=== PATIENT | male | born 1985 | race Caucasian/White ===

== ENCOUNTER 2021-04-02 17:21 | Emergency (ER) | payer OTHER ==
[2021-04-02 19:39] VITALS: O2SAT 100
[2021-04-02] MEDS ORDERED: XYLOCAINE 1% HCL 20 ML MDV ONE (20:14)
[2021-04-02] MEDS ORDERED: XYLOCAINE 1% HCL 20 ML MDV IJ ONE (20:30)
[2021-04-02] MEDS ORDERED: BACIGUENT PACKET TP ONE (20:30)
[2021-04-02 20:40] VITALS: BP 128/73; PULSE 81
--- NOTE | 2021-04-03 09:12 | XRAY ---
Indication: Laceration. Comparison: None 3 view left 2nd finger demonstrates distal soft tissue swelling/laceration. No other bony, articular, or soft tissue abnormalities.
== END 2021-04-02 20:44 | disposition home or self-care (01) ==
LOC: ED 17:21
DX: S61.211A Laceration without foreign body of left index finger without damage to nail, initial encounter (principal); W27.8XXA Contact with other nonpowered hand tool, initial encounter; Y93.89 Activity, other specified; Y92.89 Other specified places as the place of occurrence of the external cause
CPT/HCPCS: 12002; 73140; 96372; 99284; A9270-GY